=== PATIENT | male | born 1950 | race African-American/Black ===

== ENCOUNTER 2021-03-17 11:18 | Inpatient (IN) ==
[2021-03-17] MEDS ORDERED: ONDANSETRON 4 MG/2 ML VIAL IV STA (13:39)
[2021-03-17] MEDS ORDERED: SODIUM CHLORIDE 0.9% 1,000 ML IV STA (13:39)
[2021-03-17 14:07] LABS: Basophils # 0.1 10*3/uL (0.0-0.2); Basophils % 0.5 % (0.0-0.8); Eosinophils % 0.1 % (0.00-10.9); Hematocrit 36.6 VOL% (42.0-52.0); Hemoglobin 11.3 GM/DL (14.0-18.0); Immature Granulocytes % 0.9 %; Lymphocytes # 2.4 10*3/uL (1.4-4.0); Lymphocytes % 22.5 % (21.2-54.2); Mean Corpuscular HGB Conc 30.9 GM/DL (32-36); Mean Corpuscular Volume 96.6 FL (87-102); Mean Platelet Volume 10.6 FL (9.6-12.0); Monocytes % 18.7 % (1.7-12.7); NRBC # 0.04 10*3/uL; Neutrophils % 57.3 % (38.7-73.9); Platelet Count 206 T/CUMM (130-400); Red Blood Count 3.79 MC/CUMM (3.8-5.5); Red Cell Distribution Width 22.6 % (9.3-17.3); White Blood Count 10.8 T/CUMM (4-12)
[2021-03-17 14:29] LABS: Albumin 3.6 G/DL (3.4-5.0); Bilirubin,Total 2.2 MG/DL (0.20-1.00); Calcium 9.9 MG/DL (8.5-10.1); Osmolality,Calculated 323.2 MOS/KG (273-304); Potassium 2.9 MMOL/L (3.5-5.1); Total Protein 8.5 G/DL (6.4-8.2)
[2021-03-17 14:31] LABS: Anisocytosis Slight; Atypical Lymphocytes Few; Eosinophils 1 % (0-10); Lymphocytes 23 % (20-55); Macrocytosis Slight; Platelet Estimate Normal; Polychromasia 1+; Segmented Neutrophils 55 % (50-85); Total Cells Counted 100
[2021-03-17] MEDS ORDERED: ACETAMINOPHEN 325 MG TABLET PO PRN (14:59)
[2021-03-17] MEDS ORDERED: MORPHINE 2 MG/1 ML SYRINGE IV PRN (14:59)
[2021-03-17] MEDS ORDERED: SODIUM CHLORIDE 0.45% 1,000 ML IV SCH (15:00)
[2021-03-17] MEDS ORDERED: DOCUSATE/SENNA 50-8.6 MG TABLET PO PRN (15:04)
[2021-03-17] MEDS ORDERED: DIPHENOXYLATE/ATROPINE 2.5-0.025 MG TABLET PO PRN (15:04)
[2021-03-17] MEDS ORDERED: POTASSIUM CHLORIDE 20 MEQ TABLET PO PRN (21:28)
[2021-03-17] MEDS: ENOXAPARIN 30 MG/0.3 ML SYRINGE SUBCUT SCH (22:22)
[2021-03-17] MEDS: POTASSIUM CHLORIDE 20 MEQ TABLET PO SCH (22:23)
[2021-03-17] MEDS: DOCUSATE SODIUM 100 MG CAPSULE PO SCH (22:23)
[2021-03-18] MEDS: DEXTROSE 5% 1,000 ML IV SCH ×3 (01:27→22:07)
[2021-03-18 05:50] LABS: Basophils # 0.1 10*3/uL (0.0-0.2); Basophils % 0.9 % (0.0-0.8); Eosinophils % 0.2 % (0.00-10.9); Hematocrit 30.8 VOL% (42.0-52.0); Hemoglobin 9.5 GM/DL (14.0-18.0); Immature Granulocytes % 1.1 %; Immature Granulocytes Absolute 0.09 #; Lymphocytes # 2.4 10*3/uL (1.4-4.0); Lymphocytes % 27.7 % (21.2-54.2); Mean Corpuscular HGB Conc 30.8 GM/DL (32-36); Mean Corpuscular Volume 97.2 FL (87-102); Mean Platelet Volume 11.1 FL (9.6-12.0); Monocytes % 18.5 % (1.7-12.7); NRBC # 0.04 10*3/uL; Neutrophils % 51.6 % (38.7-73.9); Red Blood Count 3.17 MC/CUMM (3.8-5.5); Red Cell Distribution Width 22.6 % (9.3-17.3); White Blood Count 8.5 T/CUMM (4-12)
[2021-03-18 05:52] LABS: Calcium 8.6 MG/DL (8.5-10.1); Osmolality,Calculated 315.4 MOS/KG (273-304)
[2021-03-18 05:53] LABS: Platelet Count 146 T/CUMM (130-400)
[2021-03-18 06:18] LABS: Eosinophils 1 % (0-10); Lymphocytes 23 % (20-55); Nucleated Red Blood Cells 2 (0-5); Platelet Estimate Normal; Segmented Neutrophils 61 % (50-85); Total Cells Counted 100
[2021-03-18] MEDS ORDERED: atenoloL 50 MG TABLET PO SCH (09:00)
[2021-03-18] MEDS: MEGESTROL 400 MG/10 ML UDCUP PO SCH (09:19)
[2021-03-18] MEDS: CYANOCOBALAMIN 500 MCG TABLET PO SCH (09:19)
[2021-03-18] MEDS: PANTOPRAZOLE 40 MG TABLET PO SCH (09:19)
[2021-03-18] MEDS: CHLORTHALIDONE 25 MG TABLET PO SCH (09:20)
[2021-03-18] MEDS: DOCUSATE SODIUM 100 MG CAPSULE PO SCH ×2 (09:20→21:51)
[2021-03-18] MEDS: atenoloL 50 MG TABLET PO SCH (09:20)
[2021-03-18] MEDS: POTASSIUM CHLORIDE 20 MEQ TABLET PO SCH ×2 (09:20→21:51)
[2021-03-18] MEDS: TAMSULOSIN 0.4 MG CAPSULE PO SCH (09:20)
[2021-03-18 11:29] LABS: INR 1.2
[2021-03-18] MEDS: ENOXAPARIN 30 MG/0.3 ML SYRINGE SUBCUT SCH (22:08)
[2021-03-19 05:00] LABS: Bilirubin,Urine Negative (Negative); Blood, Urine Negative (Negative); Glucose,Urine (UA) Negative (Negative); Granular Casts,Urine 1 /LPF (0-1); Hyaline Casts,Urine 4 /LPF (0-3); Ketones,Urine Negative (Negative); Mucus,Urine Occasional /LPF (Occasional); Nitrite,Urine Negative (Negative); Protein,Urine Negative; RBC,Urine 2 /HPF (0-4); Urine Appearance CLEAR (Clear); Urine Color Amber (Yellow); Urine Specific Gravity 1.017 (1.001-1.035)
[2021-03-19] MEDS: DEXTROSE 5% 1,000 ML IV SCH ×2 (06:28→22:58)
[2021-03-19 06:48] LABS: Calcium 8.6 MG/DL (8.5-10.1); Osmolality,Calculated 297.3 MOS/KG (273-304); Potassium 2.7 MMOL/L (3.5-5.1)
[2021-03-19] MEDS: POTASSIUM CHLORIDE RIDER 20 MEQ/100 ML PREMIX IV PRN ×2 (09:49→14:11)
[2021-03-19] MEDS: DOCUSATE SODIUM 100 MG CAPSULE PO SCH ×2 (09:51→20:13)
[2021-03-19] MEDS: POTASSIUM CHLORIDE 20 MEQ TABLET PO SCH ×2 (09:52→20:10)
[2021-03-19] MEDS: MEGESTROL 400 MG/10 ML UDCUP PO SCH (09:52)
[2021-03-19] MEDS: TAMSULOSIN 0.4 MG CAPSULE PO SCH (09:52)
[2021-03-19] MEDS: CHLORTHALIDONE 25 MG TABLET PO SCH (09:52)
[2021-03-19] MEDS: atenoloL 50 MG TABLET PO SCH (09:53)
[2021-03-19] MEDS: CYANOCOBALAMIN 500 MCG TABLET PO SCH (09:53)
[2021-03-19] MEDS: PANTOPRAZOLE 40 MG TABLET PO SCH (09:53)
[2021-03-19] MEDS ORDERED: THIAMINE 200 MG/2 ML VIAL IV ONE (11:19)
[2021-03-20] MEDS: POTASSIUM CHLORIDE RIDER 20 MEQ/100 ML PREMIX IV PRN ×3 (00:10→04:22)
[2021-03-20 05:47] LABS: Basophils % 0.3 % (0.0-0.8); Eosinophils # 0.1 10*3/uL (0.0-0.87); Eosinophils % 1.1 % (0.00-10.9); Hematocrit 30.9 VOL% (42.0-52.0); Hemoglobin 9.7 GM/DL (14.0-18.0); Immature Granulocytes % 1.2 %; Immature Granulocytes Absolute 0.14 #; Lymphocytes # 3.8 10*3/uL (1.4-4.0); Lymphocytes % 31.8 % (21.2-54.2); Mean Corpuscular HGB Conc 31.4 GM/DL (32-36); Mean Corpuscular Volume 96.6 FL (87-102); Mean Platelet Volume 11.3 FL (9.6-12.0); Monocytes % 17.5 % (1.7-12.7); NRBC # 0.07 10*3/uL; Neutrophils % 48.1 % (38.7-73.9); Platelet Count 116 T/CUMM (130-400); White Blood Count 11.8 T/CUMM (4-12)
[2021-03-20 06:05] LABS: Calcium 8.4 MG/DL (8.5-10.1); Osmolality,Calculated 280.4 MOS/KG (273-304); Potassium 3.6 MMOL/L (3.5-5.1)
[2021-03-20 06:11] LABS: Eosinophils 2 % (0-10); Hypochromasia 1+; Lymphocytes 25 % (20-55); Microcytosis 1+; Platelet Estimate Decreased; Segmented Neutrophils 56 % (50-85); Total Cells Counted 100
[2021-03-20] MEDS: POTASSIUM CHLORIDE 20 MEQ TABLET PO SCH ×2 (11:06→22:26)
[2021-03-20] MEDS: TAMSULOSIN 0.4 MG CAPSULE PO SCH (11:06)
[2021-03-20] MEDS: DOCUSATE SODIUM 100 MG CAPSULE PO SCH ×2 (11:06→22:26)
[2021-03-20] MEDS: CHLORTHALIDONE 25 MG TABLET PO SCH (11:06)
[2021-03-20] MEDS: MEGESTROL 400 MG/10 ML UDCUP PO SCH (11:07)
[2021-03-20] MEDS: CYANOCOBALAMIN 500 MCG TABLET PO SCH (11:07)
[2021-03-20] MEDS: atenoloL 50 MG TABLET PO SCH (11:07)
[2021-03-20] MEDS: PANTOPRAZOLE 40 MG TABLET PO SCH (11:07)
[2021-03-20] MEDS: LACTATED RINGERS 1,000 ML IV SCH ×2 (11:08→12:00)
[2021-03-20] MEDS ORDERED: POTASSIUM PHOSPHATE 30 MMOL in SODIUM CHLORIDE 0.9% 250 ML IV ONE ×2 (11:08→17:00)
[2021-03-20] MEDS ORDERED: propofoL 200 MG/20 ML VIAL IV ONE (13:19)
[2021-03-20] MEDS ORDERED: ETOMIDATE 20 MG/10 ML VIAL IV ONE (13:19)
[2021-03-20] MEDS ORDERED: LIDOCAINE 2% 5 ML VIAL ONE (13:19)
[2021-03-20] MEDS ORDERED: THIAMINE 100 MG TABLET PEG SCH (14:00)
[2021-03-20] MEDS: DEXTROSE 5% 1,000 ML IV SCH (15:33)
[2021-03-20] MEDS: THIAMINE 100 MG TABLET PEG SCH (22:26)
[2021-03-21] MEDS: ENOXAPARIN 30 MG/0.3 ML SYRINGE SUBCUT SCH (00:08)
[2021-03-21 06:51] LABS: Basophils # 0.1 10*3/uL (0.0-0.2); Basophils % 0.4 % (0.0-0.8); Eosinophils # 0.1 10*3/uL (0.0-0.87); Eosinophils % 0.5 % (0.00-10.9); Hematocrit 34.3 VOL% (42.0-52.0); Hemoglobin 11.6 GM/DL (14.0-18.0); Immature Granulocytes Absolute 0.18 #; Lymphocytes # 3.8 10*3/uL (1.4-4.0); Lymphocytes % 20.3 % (21.2-54.2); Mean Corpuscular HGB Conc 33.8 GM/DL (32-36); Mean Corpuscular Volume 91.5 FL (87-102); Mean Platelet Volume 11.9 FL (9.6-12.0); NRBC # 0.04 10*3/uL; Neutrophils % 66.8 % (38.7-73.9); Platelet Count 108 T/CUMM (130-400); Red Blood Count 3.75 MC/CUMM (3.8-5.5); Red Cell Distribution Width 22.3 % (9.3-17.3); White Blood Count 18.6 T/CUMM (4-12)
[2021-03-21 07:27] LABS: Calcium 8.2 MG/DL (8.5-10.1); Osmolality,Calculated 277.7 MOS/KG (273-304); Potassium 3.8 MMOL/L (3.5-5.1)
[2021-03-21 07:57] LABS: Band Neutrophils 1 % (0-10); Lymphocytes 18 % (20-55); Segmented Neutrophils 76 % (50-85); Total Cells Counted 100
[2021-03-21 07:58] LABS: Hypochromasia 1+; Microcytosis 1+; Ovalocytes Slight
[2021-03-21 07:59] LABS: Platelet Estimate Decreased
[2021-03-21] MEDS: DEXTROSE 5% 1,000 ML IV SCH ×2 (08:49→14:03)
[2021-03-21] MEDS: MEGESTROL 400 MG/10 ML UDCUP PO SCH (08:50)
[2021-03-21] MEDS: PANTOPRAZOLE 40 MG TABLET PO SCH (08:50)
[2021-03-21] MEDS: TAMSULOSIN 0.4 MG CAPSULE PO SCH (08:50)
[2021-03-21] MEDS: CYANOCOBALAMIN 500 MCG TABLET PO SCH (08:51)
[2021-03-21] MEDS: atenoloL 50 MG TABLET PO SCH (08:51)
[2021-03-21] MEDS: CHLORTHALIDONE 25 MG TABLET PO SCH (08:51)
[2021-03-21] MEDS: DOCUSATE SODIUM 100 MG CAPSULE PO SCH (08:51)
[2021-03-21] MEDS: THIAMINE 100 MG TABLET PEG SCH (08:52)
[2021-03-21] MEDS: POTASSIUM CHLORIDE 20 MEQ TABLET PO SCH (08:52)
[2021-03-21] MEDS ORDERED: HEPARIN LOCK FLUSH 500 UNIT/5 ML SYRINGE IV PRN (09:52)
[2021-03-21] MEDS: LACTATED RINGERS 1,000 ML IV SCH (14:03)
[2021-03-21] MEDS ORDERED: ENOXAPARIN 40 MG/0.4 ML SYRINGE SUBCUT SCH (21:00)
[2021-03-21] MEDS: POTASSIUM BICARB EFFERVESCENT 20 MEQ TAB.EFF PO SCH (21:02)
[2021-03-21] MEDS: DOCUSATE SODIUM 100 MG/10 ML UDCUP PO SCH (21:02)
[2021-03-21] MEDS: HEPARIN LOCK FLUSH 500 UNIT/5 ML SYRINGE IV SCH (21:02)
[2021-03-22 04:07] LABS: Hematocrit 26.8 VOL% (42.0-52.0)
[2021-03-22 04:23] LABS: Hemoglobin 8.9 GM/DL (14.0-18.0)
[2021-03-22 06:12] LABS: Osmolality,Calculated 275.8 MOS/KG (273-304); Potassium 2.9 MMOL/L (3.5-5.1)
[2021-03-22] MEDS: POTASSIUM CHLORIDE RIDER 20 MEQ/100 ML PREMIX IV SCH ×3 (08:47→13:19)
[2021-03-22] MEDS: DOCUSATE SODIUM 100 MG/10 ML UDCUP PO SCH ×2 (10:02→21:31)
[2021-03-22] MEDS: TAMSULOSIN 0.4 MG CAPSULE PO SCH (10:02)
[2021-03-22] MEDS: HEPARIN LOCK FLUSH 500 UNIT/5 ML SYRINGE IV SCH ×2 (10:08→21:32)
[2021-03-22] MEDS: ONDANSETRON 4 MG/2 ML VIAL IV PRN ×2 (10:16→19:52)
[2021-03-22] MEDS: POTASSIUM BICARB EFFERVESCENT 20 MEQ TAB.EFF PO SCH ×2 (10:22→21:32)
[2021-03-22] MEDS: MEGESTROL 400 MG/10 ML UDCUP PO SCH (10:22)
[2021-03-22] MEDS: atenoloL 50 MG TABLET PO SCH (10:22)
[2021-03-22] MEDS: CHLORTHALIDONE 25 MG TABLET PO SCH (10:22)
[2021-03-22] MEDS: PANTOPRAZOLE 40 MG TABLET PO SCH (10:22)
[2021-03-22] MEDS: CYANOCOBALAMIN 500 MCG TABLET PO SCH (10:23)
[2021-03-22] MEDS: THIAMINE 100 MG TABLET PEG SCH (10:23)
[2021-03-22] MEDS: DEXTROSE 5% 1,000 ML IV SCH (13:18)
[2021-03-22 13:58] LABS: Hematocrit 29.7 VOL% (42.0-52.0); Hemoglobin 9.7 GM/DL (14.0-18.0)
[2021-03-22] MEDS ORDERED: METOCLOPRAMIDE 10 MG/2 ML VIAL IV ONE (22:00)
[2021-03-22] MEDS ORDERED: PROMETHAZINE 25 MG/1 ML VIAL IM ONE (23:59)
[2021-03-23 05:03] LABS: Basophils # 0.1 10*3/uL (0.0-0.2); Basophils % 0.2 % (0.0-0.8); Hematocrit 23.8 VOL% (42.0-52.0); Hemoglobin 7.8 GM/DL (14.0-18.0); Immature Granulocytes % 3.2 %; Lymphocytes # 3.8 10*3/uL (1.4-4.0); Lymphocytes % 12.2 % (21.2-54.2); Mean Corpuscular HGB Conc 32.8 GM/DL (32-36); Mean Corpuscular Volume 93.7 FL (87-102); Mean Platelet Volume 12.7 FL (9.6-12.0); Monocytes % 9.1 % (1.7-12.7); NRBC # 0.03 10*3/uL; Neutrophils % 75.3 % (38.7-73.9); Platelet Count 150 T/CUMM (130-400); Red Blood Count 2.54 MC/CUMM (3.8-5.5); Red Cell Distribution Width 21.6 % (9.3-17.3); White Blood Count 30.8 T/CUMM (4-12)
[2021-03-23 05:24] LABS: Albumin 2.3 G/DL (3.4-5.0); Bilirubin,Total 1.8 MG/DL (0.20-1.00); Osmolality,Calculated 265.9 MOS/KG (273-304); Total Protein 5.9 G/DL (6.4-8.2)
[2021-03-23 05:37] LABS: Hypochromasia 1+; Lymphocytes 16 % (20-55); Microcytosis 1+; Platelet Estimate Adequate; Segmented Neutrophils 74 % (50-85); Total Cells Counted 100
[2021-03-23] MEDS: ONDANSETRON 4 MG/2 ML VIAL IV PRN ×3 (06:47→21:33)
[2021-03-23] MEDS: PANTOPRAZOLE 40 MG TABLET PO SCH (08:27)
[2021-03-23] MEDS: TAMSULOSIN 0.4 MG CAPSULE PO SCH (08:27)
[2021-03-23] MEDS: HEPARIN LOCK FLUSH 500 UNIT/5 ML SYRINGE IV SCH ×2 (08:27→21:34)
[2021-03-23] MEDS: CYANOCOBALAMIN 500 MCG TABLET PO SCH (08:27)
[2021-03-23] MEDS: MEGESTROL 400 MG/10 ML UDCUP PO SCH (08:27)
[2021-03-23] MEDS: POTASSIUM BICARB EFFERVESCENT 20 MEQ TAB.EFF PO SCH ×2 (08:27→21:30)
[2021-03-23] MEDS: DOCUSATE SODIUM 100 MG/10 ML UDCUP PO SCH ×2 (08:27→21:30)
[2021-03-23] MEDS: atenoloL 50 MG TABLET PO SCH (08:27)
[2021-03-23] MEDS: CHLORTHALIDONE 25 MG TABLET PO SCH (08:27)
[2021-03-23] MEDS: THIAMINE 100 MG TABLET PEG SCH (08:28)
[2021-03-23] MEDS: DEXTROSE 5% 1,000 ML IV SCH ×5 (10:22→21:34)
[2021-03-23 12:02] LABS: Hematocrit 29.7 VOL% (42.0-52.0); Hemoglobin 8.7 GM/DL (14.0-18.0)
[2021-03-24 05:59] LABS: Basophils # 0.1 10*3/uL (0.0-0.2); Basophils % 0.2 % (0.0-0.8); Eosinophils % 0.1 % (0.00-10.9); Hematocrit 19.9 VOL% (42.0-52.0); Hemoglobin 6.5 GM/DL (14.0-18.0); Immature Granulocytes % 2.3 %; Immature Granulocytes Absolute 0.67 #; Lymphocytes # 3.8 10*3/uL (1.4-4.0); Lymphocytes % 12.9 % (21.2-54.2); Mean Corpuscular HGB Conc 32.7 GM/DL (32-36); Mean Corpuscular Volume 92.6 FL (87-102); Mean Platelet Volume 12.8 FL (9.6-12.0); Monocytes % 11.9 % (1.7-12.7); NRBC # 0.03 10*3/uL; Neutrophils % 72.6 % (38.7-73.9); Platelet Count 134 T/CUMM (130-400); Red Blood Count 2.15 MC/CUMM (3.8-5.5); Red Cell Distribution Width 21.4 % (9.3-17.3); White Blood Count 29.6 T/CUMM (4-12)
[2021-03-24 06:23] LABS: Calcium 7.6 MG/DL (8.5-10.1); Osmolality,Calculated 256.4 MOS/KG (273-304)
[2021-03-24] MEDS: DEXTROSE 5% 1,000 ML IV SCH ×2 (07:19→16:38)
[2021-03-24] MEDS: POTASSIUM BICARB EFFERVESCENT 20 MEQ TAB.EFF PO SCH ×2 (09:34→20:20)
[2021-03-24] MEDS: CYANOCOBALAMIN 500 MCG TABLET PO SCH (09:34)
[2021-03-24] MEDS: THIAMINE 100 MG TABLET PEG SCH (09:34)
[2021-03-24] MEDS: CHLORTHALIDONE 25 MG TABLET PO SCH (09:35)
[2021-03-24] MEDS: MEGESTROL 400 MG/10 ML UDCUP PO SCH (09:35)
[2021-03-24] MEDS: atenoloL 50 MG TABLET PO SCH (09:35)
[2021-03-24] MEDS: DOCUSATE SODIUM 100 MG/10 ML UDCUP PO SCH ×3 (09:35→20:27)
[2021-03-24] MEDS: PANTOPRAZOLE 40 MG TABLET PO SCH (09:35)
[2021-03-24] MEDS: TAMSULOSIN 0.4 MG CAPSULE PO SCH (09:35)
[2021-03-24] MEDS: HEPARIN LOCK FLUSH 500 UNIT/5 ML SYRINGE IV SCH ×2 (09:36→20:20)
[2021-03-24 09:54] LABS: Lymphocytes 14 % (20-55); Platelet Estimate Adequate; Segmented Neutrophils 67 % (50-85); Total Cells Counted 100
[2021-03-24] MEDS ORDERED: SODIUM CHLORIDE 0.9% 1,000 ML IV PRN (10:06)
[2021-03-24] MEDS ORDERED: FUROSEMIDE 40 MG/4 ML VIAL IV PRN (10:07)
[2021-03-24] MEDS: ONDANSETRON 4 MG/2 ML VIAL IV PRN ×2 (11:02→20:20)
[2021-03-24] MEDS: PANTOPRAZOLE 40 MG VIAL IV SCH (20:20)
[2021-03-25] MEDS: DEXTROSE 5% 1,000 ML IV SCH ×3 (00:17→16:13)
[2021-03-25 06:20] LABS: Basophils % 0.2 % (0.0-0.8); Eosinophils % 0.1 % (0.00-10.9); Hematocrit 29.1 VOL% (42.0-52.0); Hemoglobin 10.3 GM/DL (14.0-18.0); Immature Granulocytes % 1.6 %; Immature Granulocytes Absolute 0.39 #; Lymphocytes # 3.9 10*3/uL (1.4-4.0); Lymphocytes % 15.7 % (21.2-54.2); Mean Corpuscular HGB Conc 35.4 GM/DL (32-36); Mean Corpuscular Volume 86.6 FL (87-102); Mean Platelet Volume 11.5 FL (9.6-12.0); Monocytes % 11.5 % (1.7-12.7); Neutrophils % 70.9 % (38.7-73.9); Platelet Count 129 T/CUMM (130-400); Red Blood Count 3.36 MC/CUMM (3.8-5.5); Red Cell Distribution Width 16.5 % (9.3-17.3); White Blood Count 24.8 T/CUMM (4-12)
[2021-03-25 06:29] LABS: Calcium 7.6 MG/DL (8.5-10.1); Osmolality,Calculated 248.8 MOS/KG (273-304)
[2021-03-25] MEDS: POTASSIUM CHLORIDE RIDER 10 MEQ/100 ML PREMIX IV PRN ×5 (07:09→12:43)
[2021-03-25] MEDS: THIAMINE 100 MG TABLET PEG SCH (08:46)
[2021-03-25] MEDS: MEGESTROL 400 MG/10 ML UDCUP PO SCH (08:46)
[2021-03-25] MEDS: CYANOCOBALAMIN 500 MCG TABLET PO SCH (08:46)
[2021-03-25] MEDS: DOCUSATE SODIUM 100 MG/10 ML UDCUP PO SCH ×2 (08:46→20:37)
[2021-03-25] MEDS: PANTOPRAZOLE 40 MG VIAL IV SCH ×2 (08:47→20:38)
[2021-03-25] MEDS: atenoloL 50 MG TABLET PO SCH (08:47)
[2021-03-25] MEDS: HEPARIN LOCK FLUSH 500 UNIT/5 ML SYRINGE IV SCH ×2 (08:47→20:37)
[2021-03-25] MEDS: POTASSIUM BICARB EFFERVESCENT 20 MEQ TAB.EFF PO SCH ×2 (08:47→20:37)
[2021-03-25] MEDS: CHLORTHALIDONE 25 MG TABLET PO SCH (08:47)
[2021-03-25] MEDS: TAMSULOSIN 0.4 MG CAPSULE PO SCH (08:47)
[2021-03-25] MEDS ORDERED: POLYETHYLENE GLYCOL POWDER 17 GM PACK PO PRN (09:46)
[2021-03-25 09:57] LABS: Lymphocytes 11 % (20-55); Platelet Estimate Adequate; Segmented Neutrophils 78 % (50-85); Total Cells Counted 100
[2021-03-26] MEDS: DEXTROSE 5% 1,000 ML IV SCH ×2 (04:22→10:19)
[2021-03-26 05:49] LABS: Basophils % 0.2 % (0.0-0.8); Eosinophils # 0.1 10*3/uL (0.0-0.87); Eosinophils % 0.3 % (0.00-10.9); Hematocrit 28.4 VOL% (42.0-52.0); Immature Granulocytes % 1.2 %; Immature Granulocytes Absolute 0.23 #; Lymphocytes # 3.3 10*3/uL (1.4-4.0); Lymphocytes % 17.5 % (21.2-54.2); Mean Corpuscular HGB Conc 35.2 GM/DL (32-36); Mean Corpuscular Volume 88.5 FL (87-102); Mean Platelet Volume 11.9 FL (9.6-12.0); Monocytes % 12.1 % (1.7-12.7); Neutrophils % 68.7 % (38.7-73.9); Platelet Count 160 T/CUMM (130-400); Red Blood Count 3.21 MC/CUMM (3.8-5.5); Red Cell Distribution Width 17.1 % (9.3-17.3); White Blood Count 18.7 T/CUMM (4-12)
[2021-03-26 06:02] LABS: Calcium 7.5 MG/DL (8.5-10.1); Osmolality,Calculated 254.4 MOS/KG (273-304); Potassium 3.5 MMOL/L (3.5-5.1)
[2021-03-26] MEDS: HEPARIN LOCK FLUSH 500 UNIT/5 ML SYRINGE IV SCH ×2 (09:49→21:52)
[2021-03-26] MEDS: DOCUSATE SODIUM 100 MG/10 ML UDCUP PO SCH ×2 (09:56→21:51)
[2021-03-26] MEDS: MEGESTROL 400 MG/10 ML UDCUP PO SCH (09:57)
[2021-03-26] MEDS: POTASSIUM BICARB EFFERVESCENT 20 MEQ TAB.EFF PO SCH ×2 (09:57→21:51)
[2021-03-26] MEDS: CHLORTHALIDONE 25 MG TABLET PO SCH (09:57)
[2021-03-26] MEDS: PANTOPRAZOLE 40 MG VIAL IV SCH ×2 (09:57→21:52)
[2021-03-26] MEDS: TAMSULOSIN 0.4 MG CAPSULE PO SCH (09:57)
[2021-03-26] MEDS: atenoloL 50 MG TABLET PO SCH (10:18)
[2021-03-26] MEDS: THIAMINE 100 MG TABLET PEG SCH (10:18)
[2021-03-26] MEDS: CYANOCOBALAMIN 500 MCG TABLET PO SCH (10:18)
[2021-03-26] MEDS: DEXTROSE 5% NACL 0.45% 1,000 ML IV SCH ×3 (10:19→20:37)
[2021-03-26] MEDS ORDERED: ALUMINUM/MAGNES/SIMETH MAX STR 30 ML UDCUP PO PRN (10:57)
[2021-03-27 05:31] LABS: Basophils # 0.1 10*3/uL (0.0-0.2); Basophils % 0.2 % (0.0-0.8); Eosinophils # 0.1 10*3/uL (0.0-0.87); Eosinophils % 0.3 % (0.00-10.9); Hematocrit 26.9 VOL% (42.0-52.0); Hemoglobin 9.6 GM/DL (14.0-18.0); Immature Granulocytes % 1.1 %; Immature Granulocytes Absolute 0.26 #; Lymphocytes # 3.9 10*3/uL (1.4-4.0); Lymphocytes % 16.1 % (21.2-54.2); Mean Corpuscular HGB Conc 35.7 GM/DL (32-36); Mean Corpuscular Volume 89.7 FL (87-102); Mean Platelet Volume 10.8 FL (9.6-12.0); Monocytes % 11.3 % (1.7-12.7); Platelet Count 172 T/CUMM (130-400); Red Cell Distribution Width 17.5 % (9.3-17.3); White Blood Count 24.4 T/CUMM (4-12)
[2021-03-27 05:52] LABS: Osmolality,Calculated 261.8 MOS/KG (273-304); Potassium 3.7 MMOL/L (3.5-5.1)
[2021-03-27 05:56] LABS: Lymphocytes 11 % (20-55); Platelet Estimate Adequate; Segmented Neutrophils 86 % (50-85); Total Cells Counted 100
[2021-03-27 05:57] LABS: Hypochromasia 1+; Microcytosis 1+
[2021-03-27] MEDS: DEXTROSE 5% NACL 0.45% 1,000 ML IV SCH ×2 (06:12→16:23)
[2021-03-27] MEDS: DOCUSATE SODIUM 100 MG/10 ML UDCUP PO SCH (10:35)
[2021-03-27] MEDS: THIAMINE 100 MG TABLET PEG SCH (10:36)
[2021-03-27] MEDS: CYANOCOBALAMIN 500 MCG TABLET PO SCH (10:36)
[2021-03-27] MEDS: TAMSULOSIN 0.4 MG CAPSULE PO SCH (10:37)
[2021-03-27] MEDS: POTASSIUM BICARB EFFERVESCENT 20 MEQ TAB.EFF PO SCH (10:37)
[2021-03-27] MEDS: CHLORTHALIDONE 25 MG TABLET PO SCH (10:37)
[2021-03-27] MEDS: atenoloL 50 MG TABLET PO SCH ×2 (10:38→14:19)
[2021-03-27] MEDS: PANTOPRAZOLE 40 MG VIAL IV SCH (10:41)
[2021-03-27] MEDS: MEGESTROL 400 MG/10 ML UDCUP PO SCH (10:43)
[2021-03-27] MEDS: HEPARIN LOCK FLUSH 500 UNIT/5 ML SYRINGE IV SCH (10:44)
[2021-03-27 15:41] VITALS: BP 128/67
== END 2021-03-27 16:30 | disposition hospice, home (50) | DRG 641 ==
LOC: N.ED 11:18 → N.EDINP 14:59 → N.4E 16:08 → N.5E 03-20 16:05
PROVIDERS: ADMIT Family Medicine; ATTEND Family Medicine
PROC: EGDWPEG (ICD-10-PCS; 2021-03-20 12:05)